=== PATIENT | female | born 1985 | race Caucasian/White ===

== ENCOUNTER 2017-03-08 10:30 | Inpatient (IN) | payer OTHER ==
[~2017-03-08] VITALS: Ht 167.6 cm; Wt 87.0 kg
[2017-03-08] MEDS ORDERED: PRENAT PO (11:04)
[2017-03-08 11:12] VITALS: BP 117/71; PULSE 104; RESP 20
[2017-03-08] MEDS ORDERED: CARBOPROST 250 MCG INJ IM PRN ×2 (11:30→18:00)
[2017-03-08] MEDS ORDERED: OXYTOCIN 30 UNITS/LR 500 ML IV SCH (11:30)
[2017-03-08] MEDS ORDERED: MISOPROSTOL 200 MCG TAB PR PRN ×2 (11:30→18:00)
[2017-03-08] MEDS ORDERED: OXYTOCIN 30 UNITS/LR 500 ML IV PRN ×2 (11:30→18:00)
[2017-03-08] MEDS ORDERED: METHYLERGONOVINE 0.2 MG INJ IM PRN ×2 (11:30→18:00)
[2017-03-08] MEDS: LACTATED RINGER'S 1,000 ML IV SCH ×2 (11:37→12:36)
[2017-03-08 12:20] LABS: ADD SCAN DIFF NO
[2017-03-08] MEDS ORDERED: ONDANSETRON 4 MG INJ IV STA (12:35)
[2017-03-08 12:42] LABS: BASOPHILS % 0.3 % (0.0-2.0); EOSINOPHILS # 0.1 10^3/ul (0.0-0.5); EOSINOPHILS % 0.6 % (0.0-7.0); HEMATOCRIT 42.5 % (37.0-47.0); HEMOGLOBIN 14.6 g/dl (12.0-16.0); INR 0.96; LYMPHOCYTES # 1.3 10^3/ul (0.8-2.9); MEAN CORPUSCULAR HEMOGLOBIN 32.9 pg (29.0-33.0); MEAN CORPUSCULAR HGB CONC 34.4 g/dl (32.0-37.0); MEAN CORPUSCULAR VOLUME 95.7 fl (82.0-101.0); MEAN PLATELET VOLUME 10.6 fl (7.4-10.4); MONOCYTE # 0.9 10^3/ul (0.3-0.9); MONOCYTES % 6.7 % (0.0-11.0); NEUTROPHIL # 10.8 10^3/ul (1.6-7.5); NEUTROPHILS % 81.3 % (39.0-77.0); PLATELET COUNT 193 10^3/UL (140-415); PROTIME 12.8 Sec (12.2-14.2); RED BLOOD COUNT 4.44 10^6/ul (4.20-5.40); WHITE BLOOD COUNT 13.2 10^3/ul (4.8-10.8)
[2017-03-08 12:43] LABS: PARTIAL THROMBOPLASTIN TIME 27.2 Sec (25.0-35.0)
[2017-03-08] MEDS ORDERED: CITRIC ACID/SODIUM CITRATE 15 ML CUP PO ONE (13:00)
[2017-03-08] MEDS ORDERED: CEFAZOLIN 2 GM/50 ML (PMX) 50 ML IVPB ONE (13:00)
[2017-03-08] MEDS ORDERED: METOCLOPRAMIDE 10 MG INJ IV ONE (13:00)
[2017-03-08] MEDS ORDERED: morphine SULFATE/PF (10 MG/10 ML) INJ ONE (14:09)
[2017-03-08] MEDS ORDERED: OXYTOCIN 10 UNIT INJ ONE (14:09)
[2017-03-08] MEDS ORDERED: PHENYLephrine (100 MCG/ML) 5ML SYG ONE ×2 (14:09→14:21)
[2017-03-08] MEDS ORDERED: KETOROLAC 30 MG INJ ONE (14:09)
[2017-03-08] MEDS ORDERED: DEXAMETHASONE 4 MG/ML 1 ML INJ ONE (14:09)
[2017-03-08] MEDS ORDERED: METOCLOPRAMIDE 10 MG INJ ONE (14:09)
[2017-03-08] MEDS ORDERED: ONDANSETRON 4 MG INJ ONE (14:09)
[2017-03-08] MEDS ORDERED: ONDANSETRON 4 MG INJ IV PRN (15:00)
[2017-03-08] MEDS ORDERED: morphine 2 MG INJ IV PRN ×2 (15:00)
[2017-03-08] MEDS ORDERED: HYDROmorphONE 1 MG/ML SYG IV PRN (15:00)
[2017-03-08] MEDS ORDERED: NALOXONE (0.4 MG/ML) INJ IV PRN (15:00)
[2017-03-08] MEDS ORDERED: DIPHENHYDRAMINE 50 MG INJ IV PRN (15:00)
--- NOTE | 2017-03-08 16:05 | OPR ---
DATE OF OPERATION: PREOPERATIVE DIAGNOSES: 1. Intrauterine at 39 weeks' gestation. 2. History of 2 previous sections. 3. Request for voluntary sterilization and bilateral tubal ligation. POSTOPERATIVE DIAGNOSES: 1. Intrauterine at 39 weeks' gestation. 2. History of 2 previous sections. 3. Request for voluntary sterilization and bilateral tubal ligation. OPERATION PERFORMED: Repeat transverse low cervical section and bilateral tubal ligation. SURGEON: Catherine Berry MD CONTACT CENTER MANAGER: Mukul Sosa MD ANESTHESIA: Spinal. ANESTHESIOLOGIST: FINDINGS: Live baby girl with 's of 8 and 9. DETAILS OF PROCEDURE: Under satisfactory spinal anesthesia the patient was prepped and draped and placed in the supine position, tilted to the left. A Pfannenstiel incision was made, incision carried through the subcutaneous tissue. Bleeders were brought under control with electrocautery. Fascia was incised to the length of the incision. Rectus muscle was divided in the midline. Peritoneum was exposed, entered through a transverse incision. Exploration of the abdomen, a gravid uterus at term, normal-appearing tubes and ovaries, extremely thinned out lower segment of the uterus. A bladder flap was developed. A transverse incision was made in the lower segment of the uterus. Amniotic sac ruptured. Clear amniotic fluid was noted. Live baby girl was delivered from an unengaged vertex. Nasal oropharyngeal suction was performed. Baby was handed to the team for immediate attention. Patient received 20 units of Pitocin. Placenta delivered manually intact. Uterine cavity was cleaned with a wet sponge and drainage established. Uterus was closed in 2 layers using Monocryl #1 in continuous fashion. Bilateral tubal ligation was performed by identifying the ampulla and the fimbria of the right fallopian tube. Suture material used, #0 plain catgut, which was reinforced with the same suture material. That portion of the tube was completely excised and the cut end of the tube was cauterized and the specimen was submitted to pathology. The same procedure was performed for the opposite side. The peritoneal cavity was irrigated with warm saline. Sponge, needle and instrument were reported to be correct. Abdominal peritoneum was closed with 2- 0 chromic catgut continuously. The rectus muscle was approximated with a few interrupted 2-0 chromic catgut. Fascia was closed with #1 PDS in continuous fashion. Subcutaneous tissue was approximated with 2-0 chromic catgut and the skin was closed with meredith. Estimated blood loss was 600 mL. Urine bag contained 200 mL of clear urine. Patient tolerated the procedure well and was transferred to the recovery room in good condition. Dictated By: CATHERINE DE OLIVEIRA/DAVE Conf#: [id number] DID#: [id number] MTDD
[2017-03-08] MEDS: KETOROLAC 30 MG INJ IV PRN (16:21)
--- NOTE | 2017-03-08 16:56 | HP ---
Date/Time of Note Date/Time of Note DATE: 03/08/17 TIME: 16:32 OB - History Hx of Present Free Text/Dictation 31 years old female 3 para 2 history of 2 previous section EDC of March 22, 2007 admitted to [facility] at 38 weeks gestation in active labor patient also has requested bilateral tubal ligation at the time of her section. 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 Total of 3 pregnancies including present 2 previous section Allergies denies allergy to any known medication Social habit denies a smoking drinking or use history of any illicit drugs Review of system within normal Physical examination 5 feet 6 192 pounds temperature 98.9 pulse 90 respiration 20 blood pressure 120/73 Head ears nose and throat negative neck supple no thyromegaly Lungs clear to P&A Heart normal sinus rhythm no murmur Abdomen fundal height 37 cm from symphysis pubis heart rate category 1 contraction 3-5 minutes Pelvic examination deferred Impression intrauterine at 38 weeks gestation history of 2 previous section request for voluntary sterilization bilateral tubal ligation in labor Plan repeat section bilateral tubal Patient was counseled regarding the complication of the surgery including but not limited to bowel and bladder injury infection wound hematoma and hemorrhage and she is willing to go ahead with this procedure. Chief Complaint: Previous in labor requested tubal ligation Estimated Due Date: Mar 22, 2017 : 3 Para: 2 Care: Good Care Ultrasounds: Normal mid trimester US Obstetrical Complications: None Medical Complications: None Past Family/Social History * Past Medical, Surgical, Family and Obstetric Histories reviewed from chart. Rubella: immune RPR/VDRL: Negative GBS Status: Negative HBsAG: Negative OB Admission Exam Vital Signs Vital Signs Vital Signs Date Time Temp Pulse Resp B/P Pulse Ox O2 Delivery O2 Flow Rate FiO2 03/08/17 11:12 98.9 104 20 117/71 97 Room Air Physical Exam HEENT: WNL Heart: Rhythm Normal Lungs: Clear, Equal Abdomen: WNL Extremities: Normal Reflexes: Normal Cervical Dilatation: None Effacement: Other (No pelvic exam) Accelerations: Accelerations Present Decelerations: No Decelerations Varibility: Moderate Contractions on Admission: < 5 Minutes Apart Intensity: Firm Last 72 hours Lab Results CBC & BMP 03/08/17 11:35 CATHERINE FLYNN MD March 08, 2017 16:56
[2017-03-08] MEDS ORDERED: CEFAZOLIN 1 GM/50 ML (PMX) 50 ML IVPB SCH (18:00)
[2017-03-08] MEDS ORDERED: OXYCODONE/ACETAMINOPHEN (5/325) TAB PO PRN (18:00)
[2017-03-08] MEDS ORDERED: ACETAMINOPHEN/CODEINE #3 TAB PO PRN (18:00)
[2017-03-08] MEDS ORDERED: LANOLIN 7 GM TUBE TOP PRN (18:00)
[2017-03-08 18:15] VITALS: BP 123/71; PULSE 80; RESP 20
[2017-03-08] MEDS: SENNA/DOCUSATE NA (8.6MG/50MG) TAB PO SCH (19:46)
[2017-03-08 20:30] VITALS: BP 118/60; PULSE 82; RESP 20
[2017-03-08] MEDS: OXYTOCIN 30 UNITS/LR 500 ML IV SCH (20:33)
[2017-03-08] MEDS: HYDROmorphONE 1 MG/ML SYG IV PRN (20:55)
[2017-03-08 23:45] VITALS: BP 112/66; PULSE 82; RESP 19
[2017-03-09] MEDS: KETOROLAC 30 MG INJ IV PRN ×3 (00:43→14:42)
[2017-03-09] MEDS: OXYTOCIN 30 UNITS/LR 500 ML IV SCH ×5 (00:45→13:56)
[2017-03-09 03:45] VITALS: BP 118/68; PULSE 83; RESP 18
[2017-03-09] MEDS: HYDROmorphONE 1 MG/ML SYG IV PRN (04:52)
[2017-03-09] MEDS: LACTATED RINGER'S 1,000 ML IV SCH ×3 (05:05→20:55)
--- NOTE | 2017-03-09 06:58 | OPPN ---
Date/Time of Note Date/Time of Note DATE: 03/09/17 TIME: 06:58 Post-Anesthesia Notes Post-Anesthesia Note Last documented vital signs Vital Signs Date Time Temp Pulse Resp B/P Pulse Ox O2 Delivery O2 Flow Rate FiO2 03/09/17 03:45 98.3 83 18 118/68 Room Air 03/08/17 11:12 97 Activity: WNL Respiratory function: WNL Cardiovascular function: WNL Mental status: Baseline Pain reasonably controlled: Yes Hydration appropriate: Yes Nausea/Vomiting absent: Yes DARA WASHINGTON MD March 09, 2017 06:58
[2017-03-09] MEDS: MULTIVIT/MIN/FOLATE/IRON/PREN TAB PO SCH (08:30)
[2017-03-09] MEDS: SENNA/DOCUSATE NA (8.6MG/50MG) TAB PO SCH ×2 (08:30→20:20)
[2017-03-09 08:31] VITALS: BP 103/54; PULSE 88; RESP 18
[2017-03-09 08:44] LABS: ADD SCAN DIFF NO
[2017-03-09 09:22] LABS: BASOPHILS % 0.2 % (0.0-2.0); EOSINOPHILS # 0.1 10^3/ul (0.0-0.5); EOSINOPHILS % 0.5 % (0.0-7.0); HEMATOCRIT 36.8 % (37.0-47.0); HEMOGLOBIN 12.6 g/dl (12.0-16.0); LYMPHOCYTES # 2.5 10^3/ul (0.8-2.9); LYMPHOCYTES % 16.8 % (15.0-51.0); MEAN CORPUSCULAR HEMOGLOBIN 33.3 pg (29.0-33.0); MEAN CORPUSCULAR HGB CONC 34.2 g/dl (32.0-37.0); MEAN CORPUSCULAR VOLUME 97.4 fl (82.0-101.0); MEAN PLATELET VOLUME 10.8 fl (7.4-10.4); MONOCYTE # 1.3 10^3/ul (0.3-0.9); MONOCYTES % 8.8 % (0.0-11.0); NEUTROPHIL # 10.8 10^3/ul (1.6-7.5); NEUTROPHILS % 72.7 % (39.0-77.0); PLATELET COUNT 187 10^3/UL (140-415); RED BLOOD COUNT 3.78 10^6/ul (4.20-5.40); RED CELL DISTRIBUTION WIDTH 13.7 % (11.5-14.5); WHITE BLOOD COUNT 14.8 10^3/ul (4.8-10.8)
[2017-03-09 12:00] VITALS: BP 98/68; PULSE 72; RESP 18
--- NOTE | 2017-03-09 15:56 | PN ---
Date/Time of Note Date/Time of Note DATE: 03/09/17 TIME: 15:55 OB Subjective Subjective Subjective Post day 1 afebrile vital signs are abdomen soft bowel sounds present incision dry lochia moderate extremity normal ambulation encouraged Laboratory Tests Test 03/09/17 07:50 White Blood Count 14.810^3/ul Red Blood Count 3.7810^6/ul Hemoglobin 12.6g/dl Hematocrit 36.8% Mean Corpuscular Volume 97.4fl Mean Corpuscular Hemoglobin 33.3pg Mean Corpuscular Hemoglobin Concent 34.2g/dl Red Cell Distribution Width 13.7% Platelet Count 27889^3/UL Mean Platelet Volume 10.8fl Neutrophils % 72.7% Lymphocytes % 16.8% Monocytes % 8.8% Eosinophils % 0.5% Basophils % 0.2% Nucleated Red Blood Cells % 0.0/100WBC Neutrophils # 10.810^3/ul Lymphocytes # 2.510^3/ul Monocytes # 1.310^3/ul Eosinophils # 0.110^3/ul Basophils # 0.010^3/ul Nucleated Red Blood Cells # 0.010^3/ul Current Medications Medications (Trade) Dose Ordered Sig/Arnaldo Route PRN Reason Start Time Stop Time Status Last Admin Dose Admin Lactated Ringer's 1,000 ml @ 125 mls/hr Q8H IV 03/08/17 11:04 03/08/17 18:01 DC 03/08/17 12:36 Oxytocin/Lactated Ringer's 500 ml @ 125 mls/hr ONCE IV 03/08/17 11:30 03/08/17 18:01 DC 03/08/17 15:58 Oxytocin/Lactated Ringer's 500 ml @ 0 mls/hr ONCE PRN IV For Hemorrhage Management 03/08/17 11:30 03/08/17 18:01 DC Methylergonovine Maleate (Methergine) 0.2 mg ONCE PRN IM VAGINAL BLEEDING 03/08/17 11:30 03/08/17 18:01 DC Carboprost Tromethamine (Hemabate) 250 mcg ONCE PRN IM VAGINAL BLEEDING 03/08/17 11:30 03/08/17 18:01 DC Misoprostol 1000 mcg 1,000 mcg ONCE PRN [place] VAGINAL BLEEDING 03/08/17 11:30 03/08/17 18:01 DC Cefazolin Sodium/ Dextrose (Ancef 2 Gm/50 ml (Pmx)) 50 ml @ 100 mls/hr ONCE ONCE IVPB 03/08/17 13:00 03/08/17 13:29 DC Ondansetron HCl (Zofran Inj) 4 mg ONCE STAT IV 03/08/17 12:35 03/08/17 12:39 DC 03/08/17 12:59 Citric Acid/ Sodium Citrate (Bicitra) 30 ml ONCE ONCE PO 03/08/17 13:00 03/08/17 13:01 DC 03/08/17 12:58 Metoclopramide HCl (Reglan) 10 mg ONCE ONCE IV 03/08/17 13:00 03/08/17 13:01 DC 03/08/17 13:08 Naloxone HCl (Narcan) 0.1 mg Q2M PRN IV FOR RESP RATE 8 OR LESS 03/08/17 15:00 03/08/17 18:01 DC Ketorolac Tromethamine (Toradol) 30 mg Q6H PRN IV PAIN 03/08/17 15:00 03/09/17 14:59 DC 03/09/17 14:42 Morphine Sulfate (morphine) 2 mg Q3H PRN IV PAIN LEVEL 1-5 03/08/17 15:00 03/09/17 14:59 DC Morphine Sulfate (morphine) 4 mg Q3H PRN IV PAIN LEVEL 6-10 03/08/17 15:00 03/09/17 14:59 DC Hydromorphone HCl (Dilaudid) 0.2 mg Q3H PRN IV PAIN LEVEL 1-5 03/08/17 15:00 03/09/17 14:59 DC Hydromorphone HCl (Dilaudid) 0.4 mg Q3H PRN IV PAIN LEVEL 6-10 03/08/17 15:00 03/09/17 14:59 DC 03/09/17 04:52 Diphenhydramine HCl (Benadryl) 25 mg Q6H PRN IV ITCHING 03/08/17 15:00 03/09/17 14:59 DC 03/08/17 23:36 Ondansetron HCl (Zofran Inj) 4 mg Q6H PRN IV NAUSEA AND/OR VOMITING 03/08/17 15:00 03/09/17 14:59 DC Miscellaneous Information (* Miscellaneous Pharmacy Order) Duramorph: 0.2 mg Spi... GIVEN XX 03/08/17 15:00 03/08/17 18:01 DC Acetaminophen/ Codeine Phosphate (Tylenol No.3) 1 tab Q4H PRN PO PAIN LEVEL 4-6 03/08/17 18:00 Acetaminophen/ Codeine Phosphate (Tylenol No.3) 2 tab Q4H PRN PO PAIN LEVEL 7-10 03/08/17 18:00 Oxycodone/ Acetaminophen (Percocet (5/ 325)) 1 tab Q4H PRN PO PAIN LEVEL 4-6 03/08/17 18:00 Oxycodone/ Acetaminophen (Percocet (5/ 325)) 2 tab Q4H PRN PO PAIN LEVEL 7-10 03/08/17 18:00 Ibuprofen (Motrin) 600 mg Q6 PO 03/09/17 18:00 Simethicone (Mylicon) 160 mg Q8H PRN PO DISTENSION/GAS/BLOATING 03/08/17 18:00 Senna/Docusate Sodium (Senokot-S) 1 tab BID PO 03/08/17 21:00 03/09/17 08:30 Lanolin (Otg-A-Buvnhc) 1 applic BEDSIDE MEDICATION PRN TOP BEDSIDE FOR UCHE TO NIPPLES 03/08/17 18:00 Diphtheria/ Tetanus/Acell Pertussis 0.5 ml 0.5 ml ONCE ONCE IM* 03/11/17 09:00 03/11/17 09:01 Oxytocin/Lactated Ringer's 500 ml @ 0 mls/hr ONCE PRN IV For Hemorrhage Management 03/08/17 18:00 Methylergonovine Maleate (Methergine) 0.2 mg ONCE PRN IM VAGINAL BLEEDING 03/08/17 18:00 Carboprost Tromethamine (Hemabate) 250 mcg ONCE PRN IM VAGINAL BLEEDING 03/08/17 18:00 Misoprostol 1000 mcg 1,000 mcg ONCE PRN [place] VAGINAL BLEEDING 03/08/17 18:00 Cefazolin Sodium 50 ml @ 100 mls/hr ONCE IVPB 03/08/17 18:00 03/08/17 18:29 DC 03/08/17 22:27 Oxytocin/Lactated Ringer's 500 ml @ 125 mls/hr Q4H IV 03/08/17 17:56 03/09/17 00:45 Prenat Multivit/ [place]/Iron/Folic Ac 1 tab 1 tab DAILY PO 03/09/17 09:00 03/09/17 08:30 Lactated Ringer's (Lr) 1,000 ml @ 125 mls/hr Q8H IV 03/09/17 05:00 03/09/17 14:42 CATHERINE FLNYN MD March 09, 2017 15:56
[2017-03-09 16:00] VITALS: BP 105/69; PULSE 87; RESP 18
[2017-03-09] MEDS: IBUPROFEN 600 MG TAB PO SCH ×2 (18:00→23:59)
[2017-03-09] MEDS: ACETAMINOPHEN/CODEINE #3 TAB PO PRN (19:15)
[2017-03-10] MEDS: OXYCODONE/ACETAMINOPHEN (5/325) TAB PO PRN ×5 (00:55→19:43)
[2017-03-10] MEDS: LACTATED RINGER'S 1,000 ML IV SCH (03:35)
[2017-03-10 03:50] VITALS: BP 110/62; PULSE 68; RESP 19
[2017-03-10] MEDS: IBUPROFEN 600 MG TAB PO SCH ×4 (05:51→23:55)
[2017-03-10 07:20] VITALS: BP 99/57; PULSE 72; RESP 17
[2017-03-10] MEDS: SENNA/DOCUSATE NA (8.6MG/50MG) TAB PO SCH ×2 (08:47→21:35)
[2017-03-10] MEDS: MULTIVIT/MIN/FOLATE/IRON/PREN TAB PO SCH (08:47)
[2017-03-10 16:00] VITALS: BP 100/57; PULSE 81; RESP 17
--- NOTE | 2017-03-10 16:36 | PN ---
Date/Time of Note Date/Time of Note DATE: 03/10/17 TIME: 16:35 OB Subjective Subjective Subjective Post day 2 Afebrile vital signs stable abdomen soft, incision dry, bowel sounds present, patient had bowel movement, lochia normal extremity normal ambulation encouraged CATHERINE FLYNN MD March 10, 2017 16:36
[2017-03-10 19:43] VITALS: BP 84/49; PULSE 74; RESP 18
[2017-03-11 04:00] VITALS: BP 118/75; PULSE 77; RESP 18
[2017-03-11] MEDS: IBUPROFEN 600 MG TAB PO SCH ×3 (05:35→17:37)
[2017-03-11] MEDS: ACETAMINOPHEN/CODEINE #3 TAB PO PRN (06:40)
[2017-03-11 08:00] VITALS: BP 93/61; PULSE 68; RESP 18
[2017-03-11] MEDS ORDERED: DIPHTH/TET/ACEL PERTUSS (ADULT) 0.5 ML VIAL IM* ONE (09:00)
[2017-03-11] MEDS: MULTIVIT/MIN/FOLATE/IRON/PREN TAB PO SCH (09:46)
[2017-03-11] MEDS: SENNA/DOCUSATE NA (8.6MG/50MG) TAB PO SCH (09:46)
--- NOTE | 2017-03-11 12:01 | DS ---
Date/Time of Note Date/Time of Note DATE: 03/11/17 TIME: 11:59 Discharge Summary Admission/Discharge Info Admit Date/Time March 08, 2017 at 10:36 Discharge Date/Time March 11, 2017 and 1200 Final Diagnosis Post repeat & bilateral tubal ligation Patient Condition: Good Procedures Repeat bilateral tubal ligation Hx of Present Illness Term history of previous request for bilateral tubal ligation Hospital Course Satisfactory uneventful Home Meds Reported Medications Multivit/Min/Fol Ac/Iron/Pren* ( S*) 1 Tab Tab, 1 TAB PO DAILY, TAB 03/08/17 Follow-up Plan Appointment clinic in 4 days to discontinue meredith Primary Care Provider [facility] Time spent on discharge: < 30 minutes CATHERINE FLYNN MD March 11, 2017 12:01
[2017-03-11 17:01] VITALS: BP 134/79; PULSE 78; RESP 20
--- NOTE | 2017-03-13 23:10 | NSTRPT ---
NST Information Datetime Report Generated by CPN: 03/13/2017 23:09 Datetime: 03/08/2017 08:50 NST Information EGA: 38.0 Test Number: 6 Time on Monitor: 03/08/2017 09:21 Time off Monitor: 03/08/2017 09:56 NST Duration (Min): 35 Reason for NST: Other Reason for NST Other: Elevated Inhibin, Possible Zika Exposure Test and Monitor Explained: Monitor Explained; Test Explained; Verbalized Understanding; Breastfee ding Info Given Pulse: 104 Resp: 19 SBP: 112 DBP: 73 Test Evaluation NST Interventions: None Patient States Movement: Present Contraction Frequency: Q3-4mins. (02/20) FHR Baseline : 140 Variability: Moderate 6-25bpm Accelerations: 15X15 Decelerations: None FHR Category: Category I NST Results: Reactive Provider Notified: Dr Berry Comments: To u/s. PEDRO 7.0cm. CEPHALIC.; Pt ate last at 0830AM today. 1005-Report to Dr Berry, order received to admit to L_D for Rc/s. Report called to Glory RN/L_D, POC explained to pt, states understanding and denies further questions at this time. 1012-Pt to L_D Electronically Signed By E-Signature: with User ID: [id number] Datetime: 03/05/2017 09:14 NST Information EGA: 37.4 NST Duration (Min): 22 Datetime: 03/01/2017 09:23 NST Information EGA: 37.0 NST Duration (Min): 31 Datetime: 02/26/2017 09:32 NST Information EGA: 36.4 NST Duration (Min): 29 Datetime: 02/20/2017 09:59 NST Information EGA: 35.5 NST Duration (Min): 28 Datetime: 02/08/2017 13:34 NST Information EGA: 34.0 Datetime: 02/08/2017 13:09 NST Duration (Min): 29
== END 2017-03-11 19:01 | disposition home or self-care (01) | DRG 766 ==
LOC: L-D 10:36 → PP1 18:04
PROVIDERS: ADMIT Obstetrics & Gynecology; ATTEND Obstetrics & Gynecology
PROC: 0UB70ZZ Excision of Bilateral Fallopian Tubes, Open Approach (ICD-10-PCS; 2017-03-08)
PROC: 10D00Z1 Extraction of Products of Conception, Low, Open Approach (ICD-10-PCS; principal; 2017-03-08 16:00)
DX: O34.211 Maternal care for low transverse scar from previous cesarean delivery (principal); Z30.2 Encounter for sterilization; Z3A.39 39 weeks gestation of pregnancy; Z37.0 Single live birth
CPT/HCPCS: 85025; 85610; 85730; 86592; 86850; 86900; 86901; 88302; 90715; 99464; A4310; J0690; J1100; J1170; J1200; J1885; J2274; J2370; J2405; J2590; J2765; J7120